=== PATIENT | male | born 1945 ===

== ENCOUNTER 2023-06-18 06:00 | Outpatient (RCR) | payer MEDICARE, SELFPAY | END 2023-06-23 23:59 | disposition home or self-care (01) | LOC: GPT 06:00 | PROVIDERS: Visit Provider Neurological Surgery | DX: M48.061 Spinal stenosis, lumbar region without neurogenic claudication (principal); M54.16 Radiculopathy, lumbar region | CPT/HCPCS: 97110; 97140; 97161 ==

== ENCOUNTER 2023-06-24 06:00 | Outpatient (RCR) | payer MEDICARE, SELFPAY | END 2023-07-23 23:59 | disposition home or self-care (01) | LOC: GPT 06:00 | PROVIDERS: Visit Provider Neurological Surgery | DX: M48.061 Spinal stenosis, lumbar region without neurogenic claudication (principal); M54.16 Radiculopathy, lumbar region | CPT/HCPCS: 97110; 97112; 97140 ==